=== PATIENT | male | born 1985 | race Caucasian/White ===

== ENCOUNTER 2017-03-30 15:43 | Emergency (ER) | payer BC ==
[~2017-03-30] VITALS: Ht 182.9 cm; Wt 142.7 kg
[~2017-03-30 15:43] MED LIST: IBUP-2067 PO; NO DAILY MEDS
--- OUTSIDE RECORDS SUMMARY | 2017-03-30 15:48 | XMS REPORT | Continuity of Care Document ---
Author Author [facility] Organization [facility] Address Unknown Phone Unavailable Support Name Relationship Address Phone LA NENA PANIAGUA DO Caregiver [facility] [address] [place] [address] SONIA HERRERA Next Of Kin [address] [place] [address] Insurance Providers Payer Name Policy Number Subscriber Name Relationship [facility] [id number] Sugar Costello 18 Self Problems Medical Problems Problem Onset Date Status Infected dental caries Unknown Active Infected dental caries Unknown Active Medications Medication Dose Route Sig Days/Qty Instructions Order Date Discontinued Date Status Miscellaneous Information 08/03/11 10/17/12 Discontinued Hydrocodone/Acetaminophen 1 Tab PO EVERY 4-6 HOURS 15 Qty 08/25/14 Active Amoxicillin 1 Cap PO THREE TIMES A DAY 10 Days 08/25/14 Active Social History Social History Problem Response Recorded Date/Time Smoking Status Unknown if ever smoked 08/25/2014 10:10pm Chewing Tobacco Status No 12/03/2012 9:40am Hx Alcohol Use No 08/25/2014 10:10pm Query Response Start Date Stop Date Smoking Status Never smoker Hospital Discharge Instructions No hospital discharge instructions. Plan of Care No plan of care. Functional Status Query Response Date Recorded Physical Hygiene Self August 25, 2014 10:10pm Disabilities None August 25, 2014 10:10pm Devices Used None August 25, 2014 10:10pm Dressing Self August 25, 2014 10:10pm Ambulation Self August 25, 2014 10:10pm Diet Self August 25, 2014 10:10pm Mental Status Alert August 25, 2014 10:10pm Disabilities None August 25, 2014 10:10pm Devices Used None August 25, 2014 10:10pm Physical Hygiene Self August 25, 2014 10:10pm Dressing Self August 25, 2014 10:10pm Ambulation Self August 25, 2014 10:10pm Diet Self August 25, 2014 10:10pm Allergies, Adverse Reactions, Alerts Allergen Type Severity Reaction Status Last Updated No Known Allergies Active 08/25/14 Immunizations Name Given Type Hx Influenza Vaccination No Historical Hx Pneumococcal Vaccination No Historical Hx Tetanus, Diptheria, Pertussis Y 2002 Historical Hx Influenza Vaccination No Historical Hx Tetanus, Diptheria, Pertussis Y 2002 Historical Vital Signs Acute Vital Signs Vital Response Date/Time Temperature (Fahrenheit) 97.6 deg F (96.8 - 99.1) Temperature (Calculated Celsius) 36.18580 degrees C (36.0 - 37.3) Pulse Rate (adult) 73 bpm (60 - 100) Respiratory Rate 16 breaths/min (10 - 20) O2 Sat by Pulse Oximetry 97 % (90 - 100) Blood Pressure 151/86 mm Hg Height 6 ft 0 in Weight 300 lb Body Mass Index 40.0 kg/m^2 Results Test Source Date Result Interp. Ref. Range Comments Activated Partial Thromboplast Time August 03, 2011 2:18pm 33.5 SEC N 24-36 Alanine Aminotransferase (ALT/SGPT) August 03, 2011 2:18pm 34 U/L N 21-72 Albumin August 03, 2011 2:18pm 4.3 G/DL N 3.5-5.0 Albumin/Globulin Ratio August 03, 2011 2:18pm 1.4 RATIO N 1.1-2.2 Alkaline Phosphatase August 03, 2011 2:18pm 80 U/L N 38-126 Anion Gap August 03, 2011 2:18pm 12 MEQ/L N 5-15 Aspartate Amino Transf (AST/SGOT) August 03, 2011 2:18pm 27 U/L N 17- 59 BUN/Creatinine Ratio August 03, 2011 2:18pm 16 RATIO N 6-26 Basophils # (Auto) August 03, 2011 2:18pm 0.2 T/MM3 N 0-0.2 Basophils (%) (Auto) August 03, 2011 2:18pm 2.2 % H 0-2 Blood Urea Nitrogen August 03, 2011 2:18pm 17.0 MG/DL N 9-20 Calcium Level August 03, 2011 2:18pm 9.1 MG/DL N 8.4-10.2 Calculated Osmolality August 03, 2011 2:18pm 282 MOSM/KG H 261-280 Carbon Dioxide Level August 03, 2011 2:18pm 28 MEQ/L N 22-30 Chloride Level August 03, 2011 2:18pm 106 MEQ/L N 98-107 Creatinine August 03, 2011 2:18pm 1.1 MG/DL N 0.8-1.5 Eosinophils # (Auto) August 03, 2011 2:18pm 0.3 T/MM3 N 0-0.5 Eosinophils (%) (Auto) August 03, 2011 2:18pm 4.4 % H 0-4 Erythrocyte Sedimentation Rate August 03, 2011 2:18pm 3 MM/HR N 0-15 Globulin August 03, 2011 2:18pm 3.1 G/DL N 2.4-3.6 Glucose Level August 03, 2011 2:18pm 78 MG/DL N 75-110 Hematocrit August 03, 2011 2:18pm 42.5 % N 41-53 Hemoglobin August 03, 2011 2:18pm 15.5 GM/DL N 13.5-17.5 Lymphocytes # (Auto) August 03, 2011 2:18pm 2.9 T/MM3 N 1-4.8 Lymphocytes (%) (Auto) August 03, 2011 2:18pm 39.3 % N 23-45 Mean Corpuscular Hemoglobin August 03, 2011 2:18pm 30.9 UUG N 26-34 Mean Corpuscular Hemoglobin Concent August 03, 2011 2:18pm 36.5 GM/DL N 31-37 Mean Corpuscular Volume August 03, 2011 2:18pm 84.8 UM3 N 80-100 Mean Platelet Volume August 03, 2011 2:18pm 10.5 UM3 N 9.4-12.4 Monocytes # (Auto) August 03, 2011 2:18pm 0.6 T/MM3 N 0-0.8 Monocytes (%) (Auto) August 03, 2011 2:18pm 7.8 % N 0-9.0 Monoscreen August 03, 2011 2:18pm Negative - Neutrophils # (Auto) August 03, 2011 2:18pm 3.4 T/MM3 N 1.8-7.7 Neutrophils (%) (Auto) August 03, 2011 2:18pm 46.0 % N 33-66 Platelet Count August 03, 2011 2:18pm 197 T/MM3 N 130-400 Potassium Level August 03, 2011 2:18pm 4.0 MEQ/L N 3.6-5 Prothromb Time International Ratio August 03, 2011 2:18pm 1.11 H 0.86 -1.10 THERAPUTIC RANGE=2.00-3.00 FOR ANTI-THROMBOSIS THERAPUTIC RANGE=2.50- 3.50 FOR IMPLANTED VALVE RDW Standard Deviation August 03, 2011 2:18pm 38.4 FL N 36.9-50.2 Red Blood Count August 03, 2011 2:18pm 5.01 M/MM3 N 4.50-5.90 Sodium Level August 03, 2011 2:18pm 146 MEQ/L H 134-144 Thyroid Stimulating Hormone (TSH) August 03, 2011 2:18pm 1.34 MIU/L N 0.47-4.68 Total Bilirubin August 03, 2011 2:18pm 1.00 MG/DL N 0.20-1.30 Total Protein August 03, 2011 2:18pm 7.4 G/DL N 6.3-8.2 Urine Bilirubin August 03, 2011 2:24pm Negative - Has specimen been collected/obtained? Y Urine Blood August 03, 2011 2:24pm Negative - Has specimen been collected/obtained? Y Urine Collection Type August 03, 2011 2:24pm Voided - Has specimen been collected/obtained? Y Urine Color August 03, 2011 2:24pm Yellow - Has specimen been collected/obtained? Y Urine Glucose (UA) August 03, 2011 2:24pm Negative - Has specimen been collected/obtained? Y Urine Ketones August 03, 2011 2:24pm Negative - Has specimen been collected/obtained? Y Urine Leukocyte Esterase August 03, 2011 2:24pm Negative - Has specimen been collected/obtained? Y Urine Nitrite August 03, 2011 2:24pm Negative - Has specimen been collected/obtained? Y Urine Protein August 03, 2011 2:24pm Negative - Has specimen been collected/obtained? Y Urine Specific [place] August 03, 2011 2:24pm 1.020 - Has specimen been collected/obtained? Y Urine Turbidity August 03, 2011 2:24pm Clear - Has specimen been collected/obtained? Y Urine Urobilinogen August 03, 2011 2:24pm Normal EU/DL - Has specimen been collected/obtained? Y Urine pH August 03, 2011 2:24pm 5.0 - Has specimen been collected/ obtained? Y White Blood Count August 03, 2011 2:18pm 7.3 T/MM3 N 4.5-11.0 Glomerular Filtration Rate Calc August 03, 2011 2:18pm 82 - Immature Granulocyte # (Auto) August 03, 2011 2:18pm 0.02 T/MM3 N 0.00-0.03 Immature Granulocyte % (Auto) August 03, 2011 2:18pm 0.3 % N 0.0-0.5 Procedures No known history of procedures. Encounters Encounter Location Date/Time Departed Emergency Room [facility] 08/25/14 8:08pm Recent Diagnosis
[2017-03-30 15:49] VITALS: Ht 182.9 cm; Wt 142.7 kg
--- OUTSIDE RECORDS SUMMARY | 2017-03-30 15:49 | XMS REPORT | Continuity of Care Document ---
Author Author [facility] Organization [facility] Address Unknown Phone Unavailable Allergies Medications Problems Procedures Results Encounters ACCT No. Visit Date/Time Discharge Status Pt. Type Provider Facility Loc./Unit Complaint [id number] 01/15/2014 13:27:00 01/15/2014 23 :59:59 CLS Outpatient
--- OUTSIDE RECORDS SUMMARY | 2017-03-30 15:49 | XMS REPORT | Continuity of Care Document ---
Author Author [facility] M[facility] MA, VC Amb[facility] Address Unknown Phone Unavailable Care Team Providers Care Vehicle Refinisher Name Role Phone Cavazos Bryce SAVANNAH Unavailable Payers Payer name Insurance type Covered libertarian ID Authorization(s) Unknown Problems Condition Effective Dates (start - stop) Clinical Status Footwear Stitcher's permit PE (physical examination) - *Routine Family History Family Member Diagnosis Age At Onset Status Unknown Social History Social History Element Description Quantity Unknown Allergies, Adverse Reactions, Alerts Substance Reaction Severity Status Unknown Medications Medication Instructions Dosage Effective Dates (start - stop) Status Unknown Immunizations Vaccine Date Status Comments Unknown Results Test Name Date and Time Measure Units Reference Range Abnormal Flag Comments Panel Description: Urinalysis-Dipstick Site. 13:29:00 MID Color 13:29:00 Dark Straw Clarity 13:29:00 Hazy Specific [place]-C 13:29:00 1.020 1.005-1.025 pH-C 13:29:00 5 5.0-8.0 Leukocytes-C 13:29:00 Negative Randy/uL Negative Nitrites-C 13:29:00 Negative Negative Protein-C 13:29:00 Negative mg/dL Negative QI-Jpnmima-G 13:29:00 Normal mg/dL Normal Ketones-C 13:29:00 Negative mg/dL Negative Urobilinogen-C 13:29:00 Normal mg/dL Normal Bilirubin-C 13:29:00 Negative mg/dL Negative Blood-C 13:29:00 Negative Donta/uL Negative Vital Signs Date / Time: Height Weight Pulse Rate Blood Pressure Temperature /13:39:00 71.50 in 324.00 lbs 86 /min 128/88 mm[Hg] Procedures Procedure Date Unknown Encounters Encounter Location Date Patient Visit DANIEL HARRY Advance Directives Directive Effective Date Unknown
--- OUTSIDE RECORDS SUMMARY | 2017-03-30 15:49 | XMS REPORT | Continuity of Care Document ---
Author Author [facility] Organization [facility] Address Unknown Phone Unavailable Support Name Relationship Address Phone WILMAN CORONADO MD Caregiver [address] [place] [address] [place] [phone] SONIA HERRERA Next Of Kin [address] [place] [address] Insurance Providers Payer Name Policy Number Subscriber Name Relationship [facility] [id number] Sugar Costello 18 Self Advance Directives Directive Response Recorded Date/Time Advanced Directives Type None 09/03/14 7:00pm Problems Medical Problems Problem Onset Date Status Infected dental caries Unknown Active Infected dental caries Unknown Active Eye irritation Unknown Active Medications Medication Dose Route Sig Days/Qty Instructions Order Date Discontinued Date Status Miscellaneous Information 08/03/11 10/17/12 Discontinued Hydrocodone/Acetaminophen 1 Tab PO EVERY 4-6 HOURS 15 Qty 08/25/14 Active Amoxicillin 1 Cap PO THREE TIMES A DAY 10 Days 08/25/14 Active Tobramycin Sulfate/Dexameth 1 Drop OP EVERY 4-6 HOURS 5 Days 09/03/14 Active Social History Social History Problem Response Recorded Date/Time Smoking Status Never smoker 09/03/2014 7:06pm Chewing Tobacco Status No 12/03/2012 9:40am Hx Substance Use No 09/03/2014 7:06pm Hx Alcohol Use No 09/03/2014 7:06pm Query Response Start Date Stop Date Smoking Status Never smoker Hospital Discharge Instructions No hospital discharge instructions. Plan of Care No plan of care. Functional Status Query Response Date Recorded Physical Hygiene Self September 03, 2014 7:06pm Disabilities Visual September 03, 2014 7:06pm Devices Used Glasses September 03, 2014 7:06pm Dressing Self September 03, 2014 7:06pm Ambulation Self September 03, 2014 7:06pm Diet Self September 03, 2014 7:06pm Mental Status Alert September 03, 2014 7:06pm Disabilities Visual September 03, 2014 7:06pm Devices Used Glasses September 03, 2014 7:06pm Physical Hygiene Self September 03, 2014 7:06pm Dressing Self September 03, 2014 7:06pm Ambulation Self September 03, 2014 7:06pm Diet Self September 03, 2014 7:06pm Allergies, Adverse Reactions, Alerts Allergen Type Severity Reaction Status Last Updated No Known Allergies Active 09/04/14 Immunizations Name Given Type Hx Influenza Vaccination Y 2012 Historical Hx Pneumococcal Vaccination No Historical Hx Tetanus, Diptheria, Pertussis Y 2003 Historical Hx Influenza Vaccination Y 2012 Historical Hx Tetanus Diptheria No Historical Hx Tetanus, Diptheria, Pertussis Y 2003 Historical Vital Signs Acute Vital Signs Vital Response Date/Time Temperature (Fahrenheit) 97.8 deg F (96.8 - 99.1) Temperature (Calculated Celsius) 36.05678 degrees C (36.0 - 37.3) Pulse Rate (adult) 68 bpm (60 - 100) Respiratory Rate 20 breaths/min (10 - 20) O2 Sat by Pulse Oximetry 96 % (90 - 100) Blood Pressure 116/63 mm Hg Height 6 ft 0 in Weight 298 lb Body Mass Index 40.0 kg/m^2 Results [...] Has specimen been collected/obtained? Y Urine Specific [place] August 03, 2011 2:24pm 1.020 - Has [...] Encounters Encounter Location Date/Time Departed Emergency Room [facility] 09/03/14 6:57pm Departed Emergency Room [facility] 08/25/14 8:08pm Recent Diagnosis
--- OUTSIDE RECORDS SUMMARY | 2017-03-30 15:49 | XMS REPORT | Continuity of Care Document ---
Author Author [facility] Organization [facility] Address Unknown Phone Unavailable Support Name Relationship Address Phone EDWIN JOHNSON MD Caregiver [address] [place] [address] Unavailable MARCELO TRIMBLE MD Caregiver [address] [place] [address] Unavailable GARY HANSON Next Of Kin [place], [place] [id number] Insurance Providers Guarantor Bobby Costello Address [address] [place] [address] Email DENIED PT PORTAL Payer [facility] Policy Number [id number] Subscriber's Name Bobby Costello Relationship 18 Self Group Number [id number] Chief Complaint and Reason for Visit Chief Complaint Upper Extremity Pain Reason for Visit Shoulder joint pain Problems Active Problems Medical Problem Onset Date Status Eye irritation Unknown Acute Infected dental caries Unknown Acute Infected dental caries Unknown Acute Pain, dental Unknown Acute Past Problems Medical Problem Onset Date Shoulder joint pain Unknown Medications Current Home Medications Medication Dose Units Route Directions Days Qty Instructions Start Date Ibuprofen 600 Mg Tablet 1 Tab Oral Every 6-8 Hours Prn as needed for Pain 30 Tablet take with food 05/04/16 No Daily Meds 02/09/16 Past Home Medications Medication Directions Ordered Status Amoxicillin 500 Mg Capsule, 1 Cap Oral Three Times A Day 08/25/14 Discontinued Hydrocodone/Acetaminophen ([place] 5-325 Tablet) 1 Each Tablet, 1 Tab Oral Every 4-6 Hours 08/25/14 Discontinued Miscellaneous Information (No Known Medications) Misc, 08/03/11 Discontinued Tobramycin Sulfate/Dexameth (Tobradex Eye Drops) 50 Drop/5 Ml Drops, 1 Drop Ophthalmic Every 4-6 Hours 09/03/14 Discontinued Social History Social History Problem Response Recorded Date/Time Onset Date Status Chewing Tobacco Status No 12/03/2012 9:40am Not Applicable Not Applicable Hx Substance Use No 05/04/2016 2:00pm Not Applicable Not Applicable Hx Alcohol Use No 05/04/2016 2:00pm Not Applicable Not Applicable Tobacco Usage none 08/25/2014 10:20pm Not Applicable Not Applicable Query Response Start Date Stop Date Smoking Status Never smoker Hospital Discharge Instructions No hospital discharge instructions. Plan of Care Discharge Date 05/04/16 5:38pm Disposition 01 DISCHARGED HOME, SELF-CARE Condition at Discharge Stable Instructions/Education Provided DI for Bursitis Forms Provided Return to Work/School Permit Prescriptions See Medication Section Referrals EDWIN JOHNSON MD Address: [address] [place] [address] [place] [phone] Additional Instructions/Education Wear sling while up and around - make sure to slowly do range of motion exercises with left shoulder 2-3 times a day to prevent stiffness. Ibuprofen as ordered. May apply heat or ice or alternate for comfort. Follow up with PCP 7- 10 days for recheck after shoulder rest. Job restrictions as printed on work note. Care Plan and Goals Physician Care Plan Problem: Shoulder pain Goal: Follow up with primary care provider Instructions: Take medications and follow care plan as discussed/written Functional Status No functional status results. Allergies, Adverse Reactions, Alerts No known allergies. Immunizations Query Response on File Recorded Date/Time Hx Influenza Vaccination Y 201209/03/14 7:06pm Hx Pneumococcal Vaccination No 09/03/14 7:06pm Hx Tetanus, Diptheria, Pertussis Y 200309/03/14 7:06pm Hx Influenza Vaccination Y 201209/03/14 7:06pm Hx Tetanus Diptheria No 05/04/16 2:03pm Hx Tetanus, Diptheria, Pertussis Y 200309/03/14 7:06pm Influenza Vaccine Hx NONE 05/04/16 2:03pm Tetanus Diptheria Vaccine History UP TO DATE 05/04/16 2:00pm Vital Signs Acute Vital Signs Vital Response Date/Time Temperature (Fahrenheit) 98.4 deg F (96.8 - 99.1) 05/04/2016 5:38pm Temperature (Calculated Celsius) 36.37959 degrees C (36.0 - 37.3) 05/04/2016 5:38pm Pulse Rate (adult) 64 bpm (60 - 100) 05/04/2016 5:38pm Respiratory Rate 16 breaths/min (10 - 20) 05/04/2016 5:38pm O2 Sat by Pulse Oximetry 97 % (90 - 100) 05/04/2016 5:38pm Blood Pressure 153/86 mm Hg 05/04/2016 5:38pm Height (Feet) 6 feet 05/04/2016 2:00pm Height (Inches) 0 inches 05/04/2016 2:00pm Weight (Kilograms) 144.300 kg 05/04/2016 2:00pm Body Mass Index (BMI) 43.0 05/04/2016 2:00pm Results Name: BOBBY COSTELLO Unit #: [id number] : 1985 Sex: M Admit Date: Loc / Svc: ED Discharge Date: DIAGNOSTIC IMAGING REPORT Report #: [id number] [facility], [place] Indication: ITS.REASON: pain lasting several weeks/ no acute trauma PROCEDURE: SHOULDER LEFT 2-3 VIEWS: Encounter: Initial Comparison: None Findings: There is no acute fracture, dislocation or malalignment identified. Impression: No acute osseous abnormality. . Procedures Procedure Status Date Provider(s) EMERGENCY DEPT VISIT Completed 02/09/16 Encounters Encounter Location Arrival/Admit Date Discharge/Depart Date Attending Provider Departed Emergency Room [facility] 05/04/16 1:29pm 05/04/16 5: 38pm MARCELO TRIMBLE MD Departed Emergency Room [facility] 02/09/16 4:20pm 02/09/16 5: 24pm LA NENA PANIAGUA DO Recent Diagnosis
--- NOTE | 2017-03-30 16:02 | ERPDOC ---
Departure Disposition Decision Date: March 30, 2017 Disposition Decision Time: 17:03 Disposition: 01 DISCHARGED HOME, SELF-CARE Impression Impression Impression: Primary Impression: Impacted cerumen of both ears Condition: Stable Seen By: Mid-level only Referrals: EDWIN JOHNSON MD (Family) 1 Week follow up in one week if symptoms continue Patient Instructions: Cerumen Impaction (ED) Problems/Meds/Labs Reviewed?: Yes Medications reviewed and manag: Yes Follow up care ordered?: Yes Mental Status: Alert, Oriented Scripts Neomycin/Polymyxin B Sulf/Hc (Hdwmyweh-Ykhcjnaqp-Tg Ear Susp) 10 Ml Drops.susp 4 DROP EACH EAR QID for 5 Days, BOTTLE Prov: QUINN HOUSTON ROXANA 03/30/17 HPI - EENT General General Chief Complaint: Ear Pain/Injury Stated Complaint: EAR PAIN Time Seen by Provider: 16:02 Source: patient Exam Limitations: no limitations HPI - EENT General Initial Comments Reports developing ear discomfort and fullness; he believes it is due to to excessive cerumen in his ears that he has made worse with a q tip. Denies fevers or chills. States hearing is impaired because ears feel plugged. No fevers or chills. No headaches Occurred At: home Onset/Timing: Gradual Duration: 1 week Location: ear (R), ear (L) Prearrival Treatment: other (attempted H202 irrigation ) Associated Symptoms: change in hearing, DENIES: ear drainage, fever, malaise, nasal congestion/drainage, sinus infection Quality: other (fullness ) Allergies: Coded Allergies: No Known Allergies (Unverified , 03/30/17) Past History Past Medical History Pt denies signifigant PMH Respiratory: pneumonia Surgical History Denies Surgeries Family History Family PMH: FOUND: diabetes Vaccines Hx Influenza Vaccination: Yes (2012) Hx Pneumococcal Vaccination: No Hx Tetanus Diptheria: No Hx Tetanus, Diptheria, Pertuss: Yes (2003) Review of Systems Constitutional Constitutional: see HPI, DENIES: chills, dizziness, fever Eyes General: DENIES: burning, itching, pain Lids/Accessories: DENIES: erythema, swelling ENMT Ears: other (fullness ), see HPI Hearing: see HPI Balance: DENIES: falling to one side, vertigo Sinuses: DENIES: congestion, rhinorrhea Nose: DENIES: change in smell, pain Mouth/Throat: DENIES: scratchy throat, sore throat Cardiovascular Cardiac: DENIES: chest pain Rhythm/Rate: DENIES: tachycardia GI Upper Abdomen: DENIES: nausea, pain Lower Abdomen: DENIES: diarrhea, pain General: DENIES: dysuria, frequency Musculoskeletal General: DENIES: cramps, pain, weakness Neurological General: DENIES: headache, numbness Psychiatric Psychiatric: DENIES: depression, nervousness Hematologic/Lymphatic Hematologic/Lymphatic: DENIES: anemia, easy bruising Allergic/Immunological Allergic/Immunoligical: DENIES: sneezing All other Systems All Other Systems: Reviewed and Negative Physical Exam General General Nourishment: well nourished, well developed, appears stated age, no acute distress, adult Vitals and Pain First Documented Vital Signs Date Time Temp Pulse Resp B/P Pulse Ox O2 Delivery O2 Flow Rate FiO2 03/30/17 15:49 97.8 84 16 146/84 95 Room Air Weight: Kilograms: Height (feet): 6 Height (inches): 0 Triage Pain Scale: Normal Exams: Head: Normocephalic w/o trauma Eyes: Pupils are PERRLA w/ EOMI, No scleral icterus, irritation, or foreign bodies noted Fundi: Disks flat and sharp, No hemorrhages, or AV nicking noted ENMT: No facial trauma, nasal exudates, pharyngeal erythema, or exudates are noted Neck: Full range of motion, without adenopathy, JVD, bruits or thyromegaly Chest/Resp: Clear all wagoner, with good airflow, and symmetry bilaterally CV: Regular rate and rhythm, without murmur or gallop, Pulses 2+ all extremities, capillary refill, <2 seconds all ext., no pedal edema noted Abdomen: Bowel sounds positive, soft, non-tender, non-distended, no hepatosplenomegaly, masses or bruits noted Musculoskeletal: No tenderness, or deformity noted, good range of motion, all extremities Psychiatric: Patient exhibits, appropriate attention, emotion and affect ENMT (brief) ENMT Brief: FOUND: mucosa moist, NOT FOUND: ear canals clear, pharnyx erythema Comments cerumen impaction both ears Differential Diagnoses Considering: Eustachian Tube Dysfuncti, Intraocular Foreign Body, URI Procedures Ear Irrigation Ear Irrigated: Left, Right Irrigated with: saline, peroxide Results: complete removal Medication Prescribed: Yes Progress Results/Orders Orders Procedure Category Date Status Time Irrigate Ear (Ed) EDM 03/30/17 Transmitted 16:01 QUINN HOUSTON APRN March 30, 2017 16:02
--- OUTSIDE RECORDS SUMMARY | 2017-03-30 16:43 | XMS REPORT | Continuity of Care Document ---
Author Author [facility] Organization [facility] Address Unknown Phone Unavailable Support Name Relationship Address Phone LA NENA PANIAGUA DO Caregiver [address] [place] [address] SONIA HERRERA Next Of Kin [address] [place] [address] Insurance Providers Payer Name Policy Number Subscriber Name Relationship [facility] [id number] Sugar Costello 18 Self Problems Medical Problems [...] F (96.8 - 99.1) Temperature (Calculated Celsius) 36.23225 degrees C (36.0 - 37.3) Pulse Rate [...] Has specimen been collected/obtained? Y Urine Specific [place] August 03, 2011 2:24pm 1.020 - Has [...] Encounters Encounter Location Date/Time Departed Emergency Room 08/25/14 8:08pm Recent Diagnosis
--- OUTSIDE RECORDS SUMMARY | 2017-03-30 16:43 | XMS REPORT | Continuity of Care Document ---
Author Author [facility] Organization [facility] Address Unknown Phone Unavailable Support Name Relationship Address Phone WILMAN CORONADO MD Caregiver [address] [place] [address] [place] [phone] SOINA HERRERA Next Of Kin [address] [place] [address] Insurance Providers Payer Name Policy Number Subscriber Name Relationship [facility] [id number] Sugar Costello 18 Self Advance Directives Directive [...] F (96.8 - 99.1) Temperature (Calculated Celsius) [phone] degrees C (36.0 - 37.3) Pulse Rate [...] Has specimen been collected/obtained? Y Urine Specific [place] August 03, 2011 2:24pm 1.020 - Has [...] Encounters Encounter Location Date/Time Departed Emergency Room [facility] 09/03/14 6:57pm Departed Emergency Room [facility] 08/25/14 8:08pm Recent Diagnosis
--- OUTSIDE RECORDS SUMMARY | 2017-03-30 16:43 | XMS REPORT | Continuity of Care Document ---
Author Author [facility] Organization [facility] Address Unknown Phone Unavailable Allergies Medications Problems Procedures Results Encounters ACCT No. Visit Date/Time Discharge Status Pt. Type Provider Facility Loc./Unit Complaint [id number] 01/15/2014 13:27:00 01/15/2014 23 :59:59 CLS Outpatient
--- NOTE | 2017-03-30 17:01 | NUR ---
QUINN SCHMIDT IN
[2017-03-30] MEDS ORDERED: NEOM10DR7 EACH EAR (17:05)
[2017-03-30 17:10] VITALS: BP 135/97; PULSE 63; RESP 16; TEMP 97.9; O2SAT 95
--- NOTE | 2017-03-30 17:10 | NUR ---
DISCHARGED FEELING BETTER
== END 2017-03-30 17:10 | disposition home or self-care (01) ==
LOC: ED 15:43
DX: H61.23 Impacted cerumen, bilateral (principal)